=== PATIENT | male | born 1950 | race Caucasian/White ===

== ENCOUNTER → 2016-09-10 | Day surgery (SDC) | payer MEDICARE, OTHER ==
[2016-09-10] VITALS (7 sets, daily range): BP systolic 140–146; BP diastolic 61–86
[~2016-09-10] VITALS: Ht 165.1 cm; Wt 93.0 kg
[~2016-09-10] MED LIST: ASPIRIN81 MG ORAL; CARBAMAZEPINE200 MG ORAL; CRESTOR10 M2 ORAL; DIOVAN80 MG ORAL; DOXAZOSIN MESYLA4 MG ORAL; ISOSORBIDE DINIT5 MG ORAL; LORATADINE10 M1 PO; LORAZEPAM0.5 MG ORAL; LR 1000ml 1,000 ML IVLG ONE; LR 1000ml ONE; NEXIUM40 MG ORAL; PAXIL10 MG ORAL; Propofol 10mg/ml 20ml IV ONE; SPIRONOLACTONE PO; SPIRONOLACTONE25 MG ORAL; TAMSULOSIN HCL0.4 MG ORAL; [UNRECOGNIZED DRUG - OTHER] PO
--- NOTE | 2016-09-10 07:57 | Short Stay Surgery H&P ---
History of Present Illness History of Present Illness Chief Complaint History of colon polyp and abdominal pains HPI Bradford Mckeon is a 66 year old male who was admitted on for Colon Polyps and abdominal pains. Patient History Allergies: Coded Allergies: NO KNOWN ALLERGIES (Verified Allergy, Unknown, 09/09/16) PAST MEDICAL HISTORY: (1) Essential (primary) hypertension (2) Hyperlipidemia (3) Benign prostatic hypertrophy Past Surgeries: Social History: Medication History Scheduled Aspirin* (Aspirin*), 81 MG ORAL DAILY, (Reported) Carbamazepine* (Carbamazepine*), 600 MG ORAL FOUR TIMES A DAY, (Reported) Carbamazepine* (Carbamazepine*), 400 MG ORAL BEDTIME, (Reported) Doxazosin Mesylate* (Doxazosin Mesylate*), 4 MG PE ORAL DAILY, (Reported) Esomeprazole Magnesium (Nexium), 40 MG ORAL DAILY, (Reported) Isosorbide Dinitrate (Isosorbide Dinitrate*), 5 MG ORAL BEDTIME, (Reported) Isosorbide Dinitrate (Isosorbide Dinitrate*), 5 MG ORAL QHS, (Reported) Loratadine (Loratadine), 10 MG PO DAILY, (Reported) Lorazepam* (Lorazepam*), 0.5 MG ORAL BEDTIME, (Reported) Paroxetine Hcl* (Paxil*), 10 MG ORAL DAILY, (Reported) Rosuvastatin Calcium* (Crestor*), 5 MG ORAL DAILY, (Reported) Spironolactone* (Aldactone*), 25 MG ORAL DAILY, (Reported) Tamsulosin Hcl (Tamsulosin Hcl*), 0.4 MG ORAL BEDTIME, (Reported) Valsartan (Diovan), 150 MG ORAL DAILY, (Reported) [Rovastin], 5 MG PO DAILY, (Reported) Review of Systems Cardiovascular: Reports: no symptoms Respiratory: Reports: no symptoms Skeletal: Reports: no symptoms Gastrointestinal: Reports: see HPI Genitourinary: Reports: BPH Neurologic: Reports: no symptoms Endocrine: Reports: no symptoms Hematologic: Reports: no symptoms Physical Exam Vital Signs Last Vital Signs Date Time Temp Pulse Resp B/P Pulse Ox O2 Delivery O2 Flow Rate FiO2 09/10/16 07:15 98.6 66 17 143/85 97 Room Air Skin: normal HENT: normal Heart: normal Lungs: normal Abdomen: abnormal Extremities: normal Genitourinary: normal Plan Plan of Care Upper and lower Gi endoscopy Preop Interventions None. Summary of Findings See the reports. Final Diagnosis: Attestation Are the patient's medical conditions optimized for surgery? Attestation Response: yes FRANCO RODRIGUEZ Sep 10, 2016 07:57
--- NOTE | 2016-09-10 07:58 | Pre-Procedure Note/Attestation ---
Pre-Procedure Note/Attestation Complete Prior to Procedure Planned Procedure: left Procedure Narrative: Endoscopic exam of the upper and the lower GI tracts. Indications for Procedure Pre-Operative Diagnosis: R/O colon polyps and colitis/gastritis. Attestation I attest that I discussed the nature of the procedure; its benefits; risks and complications; and alternatives (and the risks and benefits of such alternatives ), prior to the procedure, with the patient (or the patient's legal access representative). I attest that, if there was a reasonable possibility of needing a blood transfusion, the patient (or the patient's legal access representative) was given the [place] [employer] [facility] standardized written summary, pursuant to the Alon Pearl Blood Safety Act ([place] Health and Safety Code # 1645, as amended). I attest that I re-evaluated the patient just prior to the surgery and that there has been no change in the patient's H&P, except as documented below: JENNIFER,SAID Sep 10, 2016 07:58
--- NOTE | 2016-09-10 08:02 | Anethesia Preoperative Eval ---
Anesthesia Pre-op PMH/ROS General Date of Evaluation: Sep 10, 2016 Time of Evaluation: 08:00 Anesthesiologist: Jorgito ASA Score: ASA 3 Mallampati Score Class I : Soft palate, uvula, fauces, pillars visible Class II: Soft palate, uvula, fauces visible Class III: Soft palate, base of uvula visible Class IV: Only hard plate visible Mallampati Classification: Class II Surgeon: Ny Diagnosis: abdominal pain/colon polyp Surgical Procedure: EGD/colonoscopy Anesthesia History: none Family History: no anesthesia problems Allergies: Coded Allergies: NO KNOWN ALLERGIES (Verified Allergy, Unknown, 09/09/16) Past Medical History Cardiovascular: Reports: HTN Pulmonary: Denies: COPD, KAI, asthma, other Gastrointestinal/Genitourinary: Denies: CRI, ESRD, GERD, other Neurologic/Psychiatric: Reports: depression/anxiety Endocrine: Denies: DM, hypothyroidism, other, steroids Hematology/Immune: Denies: DVT, anemia, bleeding disorder, other PMH Narrative: HTN, BPH, depression PSxH Narrative: denies Anesthesia Pre-op Phys. Exam Physician Exam Last Vital Signs Date Time Temp Pulse Resp B/P Pulse Ox O2 Delivery O2 Flow Rate FiO2 09/10/16 07:15 98.6 66 17 143/85 97 Room Air Constitutional: NAD Neurologic: CN 2-12 intact Cardiovascular: RRR Respiratory: CTA Gastrointestinal: S/NT/ND Airway Exam Mallampati Score: Class II MO: full ROM: full Dentures: lower, upper YUMIKO ROSA D.O. Sep 10, 2016 08:02
--- NOTE | 2016-09-10 08:17 | Endoscopy Procedure Note ---
Endoscopy Procedure Note Indication for Procedure: History of colon polyps and abdominal pains Procedures Performed: EGD - Completely normal upper GI endoscopy, biospy was done per random from gastric body., colonoscopy - Grade II internal hemorrhoids othewise normal total colonoscopy. Specimen: yes Pt Tolerated Procedure Well: Yes Estimated Blood Loss: none Anesthesiologist: Dr. Bull Anesthesia: moderate sedation Medication Given: see anesthesia record Implant(s) used?: No 50 yrs or older w/o bx or poly: Yes 10yrs. F/U not recommended: Yes If not recommended, why?: 18 years or older w/prev. colo: Yes <3yrs. since last colonoscopy: No Med reason:<3 yrs.: System Reason:<3 yrs.: Last colonoscopy >= to 3yrs: Yes FRANCO RODRIGUEZ Sep 10, 2016 08:17
--- NOTE | 2016-09-10 08:18 | Discharge Instructions ---
Discharge Instructions Discharge Instructions Follow up with: See the doctor after 2 weeks in the office. For Congestive Heart Failure Reminder Report to your physician any weight gain of 5 pounds or more in one week. JENNIFER,FRANCO Sep 10, 2016 08:18
--- NOTE | 2016-09-10 08:19 | Immediate Post-Op Evaluation ---
Immediate Post-Op Evalulation Immediate Post-Op Evalulation Procedure: EGD with biopsy/ colonoscopy Date of Evaluation: Sep 10, 2016 Time of Evaluation: 08:18 IV Fluids: 500 Blood Products: none Estimated Blood Loss: none Urinary Output: due to void Blood Pressure Systolic: 123 Blood Pressure Diastolic: 76 Pulse Rate: 58 Respiratory Rate: 16 O2 Sat by Pulse Oximetry: 98 Temperature (Fahrenheit): 97 Pain Score (1-10): 0 Nausea: No Vomiting: No Complications none Patient Status: awake, reacts Hydration Status: adequate Drug: n/a YUMIKO ROSA D.O. Sep 10, 2016 08:19
--- NOTE | 2016-09-10 08:26 | 48 Hour Post Anesthesia Eval ---
Post Anesthesia Evaluation Procedure: EGD with biopsy/ colonoscopy Date of Evaluation: Sep 10, 2016 Time of Evaluation: 08:24 Blood Pressure Systolic: 137 0: 75 Pulse Rate: 56 Respiratory Rate: 16 Temperature (Fahrenheit): 97 O2 Sat by Pulse Oximetry: 99 Airway: patent Nausea: No Vomiting: No Pain Intensity: 0 Hydration Status: adequate Cardiopulmonary Status: stable Mental Status/LOC: patient returned to baseline Follow-up Care/Observations: as per GI Post-Anesthesia Complications: none Follow-up care needed: N/A YUMIKO ROSA D.O. Sep 10, 2016 08:26
--- NOTE | 2016-09-10 16:07 | Operative Note - Dictated ---
DATE OF OPERATION: 09/10/2016 PROCEDURE: Esophagogastroduodenoscopy with biopsy. PREOPERATIVE DIAGNOSIS: Abdominal pain. POSTOPERATIVE DIAGNOSIS: Completely normal upper gastrointestinal endoscopy. Biopsy was taken per random from gastric body. SURGEON: Sandy Alejandra M.D. MEDICATION USED: Per Dr. Bull, anesthesiologist. INSTRUMENT: GIF Olympus upper gastrointestinal video endoscope. DESCRIPTION OF PROCEDURE: The patient after arriving endoscopy unit, was told about the risks and benefits of the procedure, which he accepted and signed the informed consent. He was then put on the left lateral decubitus position. After adequate IV sedation, the scope was gently passed through the cricopharyngeal area, was lodged into the upper esophagus and gradually advanced towards gastroesophageal junction. The entire length of the esophagus looked normal and no evidence of any abnormality or pathology such as ulceration, stricture etc. was found. GE junction also looked normal. At this time, the scope was advanced into the stomach. Gastric cavity was distended with insufflation of air and it revealed normal gastric mucosa consisting an area of the fundus and the body and the antrum. The retroflexion maneuver was also applied for better examination of the fundus, which revealed no pathology. At this point, one random biopsy from gastric body obtained and subsequently, the scope was passed through normal looking pylorus. First and second portion of duodenum were found to be completely normal. At this time, the scope was pulled out and the procedure was terminated. The patient tolerated the procedure well. Sandy Alejandra M.D. DR: PIERRE JOB#: [id number] CC:
--- NOTE | 2016-09-10 17:37 | Operative Note - Dictated ---
DATE OF OPERATION: 09/10/2016 SURGEON: Sandy Alejandra M.D. PROCEDURE: Total colonoscopy. PREOPERATIVE DIAGNOSIS: Abdominal pain and history of colon polyps. POSTOPERATIVE DIAGNOSIS: Grade 2 internal hemorrhoids, otherwise complete normal total colonoscopy up to the base of the cecum as examined. MEDICATION USED: Per Dr. Bull. INSTRUMENT: GIF Olympus videocolonoscope. DESCRIPTION OF PROCEDURE: The patient after arriving endoscopy unit, was told about risks and benefits of the procedures. The procedure that he accepted and signed the informed consent. At this time, he was put on the left lateral decubitus position. After adequate IV sedation, the scope was gently passed through the anal area, which revealed evidence of internal hemorrhoids, which could be pushed back inside the rectum. There was no any evidence of friability or bleeding. A retroflexion maneuver was applied in the rectal area, which revealed no abnormalities such as tumors, polyps, inflammatory process, ulcers, etc. At this time, the scope was passed through normal looking rectosigmoid area and gradually advanced toward into the left descending colon. All these areas remained to be completely normal. After reaching to the splenic flexure, the scope was guided into the transverse colon, hepatic flexure, and finally was lodged into the right colon all the way to the base of the cecum. All these areas again remained to be completely normal without any evidence of polyps, tumors, strictures, ulceration, inflammatory process, etc. The colon cleanup was adequate and at this time, within 6 minutes, the scope was gradually pulled out and re-evaluation of the colon did not reveal any other abnormalities as I mentioned. The patient tolerated the procedure well and left the endoscopy room in a good condition. Sandy Alejandra M.D. DR: PIERRE JOB#: [id number] CC: MICHELLE
== END | disposition home or self-care (01) ==
LOC: GAS 06:31
DX: K29.50 Unspecified chronic gastritis without bleeding (principal); Z86.010 Personal history of colon polyps; K64.8 Other hemorrhoids; I10 Essential (primary) hypertension; E78.5 Hyperlipidemia, unspecified; N40.0 Benign prostatic hyperplasia without lower urinary tract symptoms; F32.9 Major depressive disorder, single episode, unspecified; F41.9 Anxiety disorder, unspecified; Z79.82 Long term (current) use of aspirin
CPT/HCPCS: 43239; 45378; J2704; J7120; 94003; 94150